=== PATIENT | female | born 1950 | race Caucasian/White ===

== ENCOUNTER 2016-07-10 15:20 | Emergency (ER) | payer OTHER ==
--- NOTE | 2016-07-10 15:32 | EDPHY ---
H & P Stated Complaint: Palpitations today Time Seen by Provider: 07/10/16 15:31 HPI/ROS: HPI CHIEF COMPLAINT: Palpitations HISTORY OF PRESENT ILLNESS: This patient very pleasant 66-year-old female, significant past medical history for hyperlipidemia takes a baby aspirin, anxiety presents to the emergency room by private vehicle. She states around 2: 00 p.m. today she developed palpitations she states it was not a racing heart she did not have any chest pain she did not have any shortness of breath she did not have any nausea vomiting or numbness or tingling. She tells me that she was at work having palpitations she did not feel like she is going to pass out. She drove around in her car to see if the environment that was causing her to be stressed would relieve her palpitations. She tells me that she went back to the office or palpitations persisted she talked to her boss her boss recommended coming to the emergency room. She does tell me that she had a stress test last year [place] heart that was normal. No known coronary artery disease. No history of arrhythmia however she has had palpitations in the past. Upon arrival here in the emergency room she is resting comfortably she states her palpitations have resolved Past Medical History: Hyperlipidemia, anxiety, depression, prolonged QT Past Surgical History: ectopic surgery Social History: Denies use of drugs alcohol tobacco products Family History: noncontributory ROS REVIEW OF SYSTEMS: A comprehensive 10 point review of systems is otherwise negative aside from elements mentioned in the history of present illness. Exam Constitutional triage nursing summary reviewed, vital signs reviewed, awake/ alert. Eyes normal conjunctivae and sclera, EOMI, PERRLA. HENT normal inspection, atraumatic, moist mucus membranes, no epistaxis, neck supple/ no meningismus, no raccoon eyes. Respiratory clear to auscultation bilaterally, normal breath sounds, no respiratory distress, no wheezing. Cardiovascular rate normal, regular rhythm, no murmur, no edema, distal pulses normal. Gastrointestinal soft, non-tender, no rebound, no guarding, normal bowel sounds, no distension, no pulsatile mass. Genitourinary no CVA tenderness. Musculoskeletal no midline vertebral tenderness, full range of motion, no calf swelling, no tenderness of extremities, no meningismus, good pulses, neurovascularly intact. Skin pink, warm, & dry, no rash, skin atraumatic. Neurologic awake, alert and oriented x 3, AAOx3, moves all 4 extremities equally, motor intact, sensory intact, CN II-XII intact, normal cerebellar, normal vision, normal speech. Psychiatric normal mood/affect. Heme/Lymph/Immune no lymphadenopathy. Differential Diagnosis: includes but is not limited to in a particular order cardiac arrhythmia, dehydration, electrolyte abnormality, PVCs, SVT, AFib Medical Decision Making: Re-evaluation: EKG interpretation by me on record in [employer] system. Impression time of EKG 1541, this is sinus tachycardia rate of 100 no signs of cardiac arrhythmia on this EKG this is sinus rhythm. There is no prolonged intervals. I do not appreciate any signs of WPW or Brugada. CT scan of the angiogram chest The results of the study are negative for acute pulmonary embolism, there is noted to be distal esophagus thickening possibly concerning for GERD will need EGD follow-up The study was read by Dr. Shea. I viewed the images myself on the PACS system. 1823: re-evaluation at this time this patient is resting comfortably no acute distress. There has been no evidence of cardiac arrhythmia on the monitoring and evaluation advisor during the 3 hours and 3 minutes she has been here. Her EKG is unremarkable blood work is reassuring, troponin is negative. She had a CT angiogram of her chest showed no pulmonary embolism given her positive D-dimer. She has no chest pain she has no shortness of breath she is resting comfortably. I did recommend she follows up with cardiology for palpitations. She understands. She also understands that she develops worsening shortness of breath or chest pain she needs return to the emergency room. 1834: I went over the patient's CTs result she understands she needs or esophagus followed up with. She should see GI she should also follow up with Cardiology for palpitations. She understands return emergency room if she has any worsening symptoms questions or concerns. Source: Patient - Personal History Current Tetanus Diphtheria and Acellular Pertussis (TDAP): Yes - Medical/Surgical History Hx Cardiac Disease: Yes Other PMH: palpitations. cholesterol. anxiety/depression - Social History Smoking Status: Never smoked Constitutional: Initial Vital Signs Heart Rate 88 07/10/16 15:22 Respiratory Rate 18 07/10/16 15:22 Blood Pressure 165/95 H 07/10/16 15:22 O2 Sat (%) 96 07/10/16 15:22 O2 Delivery Mode Room Air Allergies/Adverse Reactions: Sulfa (Sulfonamide Antibiotics) Allergy (Mild, Verified 07/10/16 15:26) n/v Home Medications: Medication Instructions Recorded Aspirin [Aspirin 81mg (*)] 81 mg PO DAILY 07/10/16 Atorvastatin Calcium [Lipitor 40 40 mg PO 07/10/16 mg (*)] Fenofibric Acid (Choline) 45 mg PO 07/10/16 [TRILIPIX] LORazepam [Ativan (*)] 0.5 mg PO 07/10/16 Venlafaxine Xr [Effexor Xr 75MG 75 mg PO 07/10/16 (*)] Medical Decision Making - Data Points Laboratory Results: Laboratory Results 07/10/16 15:45 07/10/16 15:45 07/10/16 15:45 WBC 5.48 10^3/uL (3.80-9.50) RBC 4.88 10^6/uL (4.18-5.33) Hgb 15.1 g/dL (12.6-16.3) Hct 44.9 % (38.0-47.0) MCV 92.0 fL (81.5-99.8) MCH 30.9 pg (27.9-34.1) MCHC 33.6 g/dL (32.4-36.7) RDW 13.0 % (11.5-15.2) Plt Count 260 10^3/uL (150-400) MPV 10.8 fL (8.7-11.7) Neut % (Auto) 51.8 % (39.3-74.2) Lymph % (Auto) 38.7 % (15.0-45.0) [place] % (Auto) 7.3 % (4.5-13.0) Eos % (Auto) 1.1 % (0.6-7.6) Baso % (Auto) 0.7 % (0.3-1.7) Nucleat RBC Rel Count 0.0 % (0.0-0.2) Absolute Neuts (auto) 2.84 10^3/uL (1.70-6.50) Absolute Lymphs (auto) 2.12 10^3/uL (1.00-3.00) Absolute Monos (auto) 0.40 10^3/uL (0.30-0.80) Absolute Eos (auto) 0.06 10^3/uL (0.03-0.40) Absolute Basos (auto) 0.04 10^3/uL (0.02-0.10) Absolute Nucleated RBC 0.00 10^3/uL (0-0.01) Immature Gran % 0.4 % (0.0-1.1) Immature Gran # 0.02 10^3/uL (0.00-0.10) PT 13.1 SEC (12.0-15.0) INR 1.00 (0.83-1.16) APTT 27.3 SEC (23.0-38.0) D-Dimer 0.61 H ug/mLFEU (0.00-0.50) Sodium 140 mEq/L (134-144) Potassium 4.1 mEq/L (3.5-5.2) Chloride 105 mEq/L (97-110) Carbon Dioxide 23 mEq/l (22-31) Anion Gap 12 mEq/L (8-16) BUN 17 mg/dL (7-23) Creatinine 0.8 mg/dL (0.6-1.0) Estimated GFR > 60 Glucose 194 H mg/dL (70-100) Calcium 10.0 mg/dL (8.5-10.4) Magnesium 1.8 mg/dL (1.6-2.3) Total Bilirubin 0.9 mg/dL (0.1-1.4) Conjugated Bilirubin 0.5 mg/dL (0.0-0.5) Unconjugated Bilirubin 0.4 mg/dL (0.0-1.1) AST 34 IU/L (14-46) ALT 65 H IU/L (9-52) Alkaline Phosphatase 63 IU/L (38-126) Creatine Kinase 74 IU/L (0-156) CK-MB (CK-2) Fraction 0.77 ng/mL (0-3.19) Troponin I < 0.012 ng/mL (0-0.034) NT-Pro-B Natriuret Pep 42 pg/mL (0-125) Total Protein 7.6 g/dL (6.3-8.2) Albumin 4.2 g/dL (3.5-5.0) Lipase 192.0 IU/L (23-300) Medications Given: Discontinued Medications Sodium Chloride (Ns) 1,000 mls @ 0 mls/hr IV ONCE ONE PRN Reason: As Directed Stop: 07/10/16 15:40 Last Admin: 07/10/16 16:08 Dose: 1,000 mls Departure - Departure Disposition: [facility] Inpatient Acute Clinical Impression: Palpitations, Esophagitis Condition: Fair Instructions: Palpitations (ED) Additional Instructions: 1. return immediately to the emergency room if develops any worsening symptoms includes chest pain, shortness of breath. 2. please stay well-hydrated do not drink caffeine. 3. Please follow up with Cardiology, for palpitations. Referrals: Ailyn Fine MD [Primary Care Provider] - As per Instructions Danny Culver MD [Medical Doctor] - As per Instructions Kevin Givens MD [Medical Doctor] - As per Instructions
[2016-07-10] MEDS ORDERED: NS 1,000 ML IV ONE (15:39)
--- NOTE | 2016-07-10 15:43 | CPEKG ---
Heart Rate: 100 RR Interval: 600 P-R Interval: 140 QRSD Interval: 98 QT Interval: 364 QTC Interval: 470 P [place]: 54 QRS [place]: 13 T Wave [place]: 93 EKG Severity - BORDERLINE ECG - EKG Impression: SINUS TACHYCARDIA EKG Impression: PROBABLE LEFT ATRIAL ABNORMALITY Electronically Signed By: Madhu Balbuena 12-Jul-2016 05:38:57
[2016-07-10 16:03] LABS: % IMMATURE GRANULYOCYTES 0.4 % (0.0-1.1); ABSOLUTE IMMATURE GRANULOCYTES 0.02 10^3/uL (0.00-0.10); ADD DIFF? NO; ADD MORPH? NO; ADD SCAN? NO; ATYPICAL LYMPHOCYTE FLAG 10 (0-99); FRAGMENT RBC FLAG 0 (0-99); HEMATOCRIT 44.9 % (38.0-47.0); HEMOGLOBIN 15.1 g/dL (12.6-16.3); LEFT SHIFT FLG 0 (0-99); LIPEMIA HEMOLYSIS FLAG 80 (0-99); MEAN CELL HEMOGLOBIN 30.9 pg (27.9-34.1); MEAN CELL HEMOGLOBIN CONCENTR. 33.6 g/dL (32.4-36.7); MEAN PLATELET VOLUME 10.8 fL (8.7-11.7); PLATELET CLUMPS FLAG 0 (0-99); PLATELET COUNT 260 10^3/uL (150-400); RED BLOOD CELL COUNT 4.88 10^6/uL (4.18-5.33)
[2016-07-10 16:12] LABS: PROTIME(PATIENT) 13.1 SEC (12.0-15.0)
[2016-07-10 16:13] LABS: APTT 27.3 SEC (23.0-38.0)
--- NOTE | 2016-07-10 16:23 | DX ---
Portable chest x-ray 1612 hours. History: Chest pain with palpitations. Findings: Heart size and pulmonary vasculature are normal. The lungs are clear without infiltrate or effusion. Osseous structures appear to be intact. There is no pneumothorax. Impression: Normal chest x-ray.
[2016-07-10 16:31] LABS: ALANINE AMINOTRANSFERASE 65 IU/L (9-52); ALBUMIN 4.2 g/dL (3.5-5.0); ALKALINE PHOSPHATASE 63 IU/L (38-126); ANION GAP 12 mEq/L (8-16); ASPARTATE AMINOTRANSFERASE 34 IU/L (14-46); BILIRUBIN,TOTAL 0.9 mg/dL (0.1-1.4); BILIRUBIN-CONJUGATED 0.5 mg/dL (0.0-0.5); BILIRUBIN-UNCONJUGATED 0.4 mg/dL (0.0-1.1); CARBON DIOXIDE 23 mEq/l (22-31); CHLORIDE 105 mEq/L (97-110); CREATININE 0.8 mg/dL (0.6-1.0); GLOMERULAR FILTRATION RATE > 60; GLUCOSE 194 mg/dL (70-100); MAGNESIUM 1.8 mg/dL (1.6-2.3); POTASSIUM 4.1 mEq/L (3.5-5.2); SODIUM 140 mEq/L (134-144); TOTAL PROTEIN 7.6 g/dL (6.3-8.2)
[2016-07-10 16:42] LABS: CREATINE KINASE-MB FRACTION 0.77 ng/mL (0-3.19); TROPONIN I < 0.012 ng/mL (0-0.034)
[2016-07-10] MEDS ORDERED: IOPAMIDOL (ISOVUE 370) 100 ML BTL IV ONE (16:57)
--- NOTE | 2016-07-10 18:00 | CT ---
CT Chest Pulmonary Angiogram With Contrast Enhancement and Multiplanar Reconstructions at 1711 hours History: Palpitations, positive D-dimer. Comparison: None. Technique: 1.25 mm axial multidetector helical CT angiogram imaging was performed through the chest w hile 90 mL [id number]-[id number] were injected intravenously without complication. The images were then transfe rred to an independent workstation where multiplanar and three-dimensional reconstructions were perfo rmed by the interpreting physician and reviewed at multiple windows. Dose reduction techniques were u tilized. CT Pulmonary Angiogram Findings: No CT evidence of definite pulmonary thromboemboli. No aortic aneur ysm or dissection. Heart is normal in size. CT Chest Findings: Thickening of the distal esophagus at the esophagogastric junction. No significant mediastinal or hilar adenopathy. No suspicious pulmonary nodules. Pleuroparenchymal scarring in the lingula. No acute pneumonia, pleural effusion or pneumothorax. Degenerative osteophytes in the thorac ic spine without destructive osseous lesions. Impression: 1. No definite pulmonary thromboemboli. 2. No aortic aneurysm or dissection. 3. Thickening of the distal esophagus. Recommend upper endoscopy evaluation. 4. No acute pneumonia, pleural effusion, or pneumothorax. 5. No cardiomegaly or pericardial effusion. Findings and recommendations discussed with Emergency Department physician, Dr. Madhu Balbuena at 17 30 hours today. Final report concurs with initial preliminary interpretation. A test result has been communicated to a licensed care provider and documented in the [employer] Critical Result system on 07/10/2016 17:43, Message ID [id number].
--- NOTE | 2016-07-10 18:38 | CPEKG ---
Heart Rate: 90 RR Interval: 667 P-R Interval: 144 QRSD Interval: 96 QT Interval: 384 QTC Interval: 470 P [place]: 54 QRS [place]: 9 T Wave [place]: 54 EKG Severity - ABNORMAL ECG - EKG Impression: SINUS RHYTHM EKG Impression: LEFT ATRIAL ABNORMALITY Electronically Signed By: Madhu Balbuena 12-Jul-2016 05:38:57
[2016-07-10 18:46] VITALS: BP 150/90; PULSE 80; RESP 18; TEMP 98.4; O2SAT 95
== END 2016-07-10 18:45 | disposition home or self-care (01) ==
DX: R00.2 Palpitations (principal); K20.9 Esophagitis, unspecified; Z79.82 Long term (current) use of aspirin
CPT/HCPCS: Q9967

== ENCOUNTER → 2017-05-14 | Outpatient (CLI) | payer OTHER | LOC: FIMAGING 12:06 | PROVIDERS: ATTEND Internal Medicine | DX: Z12.31 Encounter for screening mammogram for malignant neoplasm of breast (principal) | CPT/HCPCS: G0202 ==

== ENCOUNTER → 2018-11-12 | Outpatient (CLI) | payer OTHER | LOC: FIMAGING 11:11 ==